=== PATIENT | female | born 1990 | race Caucasian/White ===

== ENCOUNTER 2021-06-16 02:44 | Emergency (ER) | payer SELFPAY ==
[2021-06-16 02:56] VITALS: BP 143/95; PULSE 97; RESP 16; TEMP 36.8; O2SAT 98; BMI 40.3
--- NOTE | 2021-06-16 03:02 | ED.DENTAL ---
HPI - Dental/Oral General Chief complaint: Dental/Oral Stated complaint: inflamed gums/jaw pain Time Seen by Provider: 06/16/21 02:55 Source: patient Mode of arrival: Ambulatory History of Present Illness HPI Narrative: Patient is a 30-year-old female who presents with 3 days of dental pain. She states that her left lower jaw has been hurting her. She was taking some Tylenol and ibuprofen for it but she is unable to sleep tonight. She has no swelling is no one particular tooth that hurts. But unable to sleep tonight. Teeth map: 1. No dental abscess no significant dental caries mild erythema of gum Related Data Previous Rx's Medication Instructions Recorded amoxicillin 500 mg capsule 500 mg PO BID #14 cap 06/16/21 Review of Systems Review of Systems Narrative: GENERAL: Denies chills,fever HEENT: See HPI RESPIRATORY: Denies dyspnea, cough, wheezing CARDIOVASCULAR: Denies chest pain, palpitations GASTROINTESTINAL: Denies nausea, vomiting MUSCULOSKELETAL: Denies extremity pain, injury SKIN: No rash, no laceration, no pruritus NEUROLOGIC: Denies weakness, dizziness, headache, numbness 8 point review of systems is negative except for those stated above and HPI Patient History Social History Smoking Status: Never smoker Smoking Status: Never smoker Substance Use Type: does not use Exam Initial Vital Signs Initial Vital Signs: Vital Signs Temperature 98.3 F 06/16/21 02:56 Pulse Rate 97 H 06/16/21 02:56 Respiratory Rate 16 06/16/21 02:56 Blood Pressure 143/95 H 06/16/21 02:56 Pulse Oximetry 98 06/16/21 02:56 GENERAL: Well-appearing, well-nourished and in no acute distress. MOUTH: No dental abscess no facial swelling CARDIOVASCULAR: peripheral pulses in tact, cap refill <2 sec RESPIRATORY: No respiratory distress, speaks in full sentences without difficulty EXTREMITIES: Normal range of motion, no clubbing or edema. Neurovascularly intact NEUROLOGICAL: Cranial nerves II through XII grossly intact. Normal gait and speech. SKIN: Warm, dry, no petechiae, no rashes or lesions. Course Orders Ordered: Discontinued Medications Amoxicillin (Amoxicillin 250 Mg Prepack) 1 bottle MISC SEEINSTR ONE Stop: 06/16/21 03:03 Last Admin: 06/16/21 03:08 Dose: 1 bottle Documented by: LUISITO Ketorolac Tromethamine (Ketorolac 30 Mg/Ml Vial) 30 mg IM NOW ONE Stop: 06/16/21 03:02 Last Admin: 06/16/21 03:08 Dose: 30 mg Documented by: LUISITO Vital Signs Vital signs: Vital Signs - 8 hr 06/16/21 02:56 Temperature 98.3 F Pulse Rate 97 H Respiratory Rate 16 Blood Pressure 143/95 H Pulse Oximetry 98 Discharge Plan Departure Patient Disposition: Home Clinical Impression: Toothache Instructions: DI for Dental Pain Activity Restrictions/Additional Instructions: *You have been diagnosed with dental pain *What to do: At this time there is no abscess. *Continue to take medications as directed Ibuprofen 800 mg every 8 hours if needed for [id number] pain Tylenol 1000 mg it be 6 hours if needed for [id number] pain Amoxicillin 500 mg twice a day for 7 days *Follow up with your primary care provider in 2-3 days or call [phone] *Return to ER if you should have increasing facial swelling, increasing redness, increasing pain or any new, worsening or concerning symptoms Prescriptions: New amoxicillin 500 mg capsule 500 mg PO BID Qty: 14 0RF
[2021-06-16] MEDS: AMOXICILLIN 250 MG PREPACK 1 BOTTLE MISC (03:08)
[2021-06-16] MEDS: KETOROLAC 30 MG/ML VIAL IM (03:08)
== END 2021-06-16 03:20 | disposition home or self-care (01) ==
PROVIDERS: Emergency Provider Emergency Medicine
DX: K08.89 Other specified disorders of teeth and supporting structures (principal)
CPT/HCPCS: 96372; 99283; J1885